=== PATIENT | female | born 1980 | race Hispanic/Latino ===

== ENCOUNTER 2017-02-02 17:04 | Emergency (ER) | payer MEDICAID ==
[2017-02-02] MEDS ORDERED: KETOROLAC TROMETHAMINE 60 MG/2 ML VIAL IM ONE ×2 (17:28→17:29)
[2017-02-02 18:22] LABS: Urine Bilirubin Negative (NEGATIVE); Urine Blood 25 /ul (NEGATIVE); Urine Ketone Negative (NEGATIVE); Urine Protein 15 mg/dL (NEGATIVE); Urine Specific Gravity 1.025 SP.GR. (1.005-1.010); Urine Urobilinogen Normal (NORMAL)
[2017-02-02 18:30] LABS: Urine Amorphous Sediment Moderate - 2+ (NONE-FEW); Urine Appearance Clear; Urine Bacteria 4+; Urine Color Yellow; Urine Mucus Few - 1+; Urine Nitrite Positive (NEGATIVE); Urine RBC 0-5 /hpf (0-5); Urine WBC 0-5 /hpf (0-5)
[2017-02-02] MEDS ORDERED: HYDROmorphone HCL 1 MG/ML DISP.SYRIN IM ONE (18:44)
[2017-02-02] MEDS ORDERED: HYDROmorphone HCL 1 MG/ML DISP.SYRIN ONE (18:46)
--- OUTSIDE RECORDS SUMMARY | 2017-02-02 18:47 | XMS REPORT | Continuity of Care Document ---
:1980 Author Organization [facility] [place] [address] Care Team Providers Name Role Phone Unavailable Primary Care Provider Unavailable Source Comments This disclosure is being made pursuant to the My Dentist program and maynot contain all information available regarding this patient.[facility] Active Allergies and Adverse Reactions Not on File Current Medications Be aware that medications may not be up to date as of this document. Alwaysverify current medications with the patient. Not on file Active Problems Not on file Social History Tobacco Use Types Packs/Day Years Used Date Never Assessed Plan of Care Health Maintenance Due Date Last Done Comments Retired-Pertussis Vaccine Adult 1999 Retired-Tetanus Vaccine Adult 1999 Pap Smear 2001 Retired-INFLUENZA VACCINE 04/27/2015 Results from Last 3 Months Not on file
--- OUTSIDE RECORDS SUMMARY | 2017-02-02 18:47 | XMS REPORT | Continuity of Care Document ---
:1980 Author Organization [facility] ([facility]) Address [address] [place] [address] Phone [phone] Care Team Providers Name Role Phone Provider, No-Primary Care Primary Care Provider Unavailable Source Comments This disclosure is being made pursuant to the Care Everywhere program, applicable federal and state laws, and may not contain all informaitonavailable regarding this patient.[facility] ([facility]) Active Allergies and Adverse Reactions Allergen Noted Date Severity Reactions Comments Hydrocodone-Acetaminophen 12/21/2014 Urticaria (Hives) Current Medications Prescription Sig. Disp. Refills Start Date End Date Status ibuprofen 800 mg Take 1 Tab by mouth 20 Tab 0 12/21/2014 Active tablet every 6 hours as needed for Pain. DO NOT EXCEED 3,200 MG IBUPROFEN PER DAY FROM ALL SOURCES Indications: PAIN oxyCODONE-acetaminoph Take 1 Tab by mouth 15 Tab 0 12/21/2014 Active en 5-325 mg per every 4 hours as tablet needed. DO NOT EXCEED 3,000 MG ACETAMINOPHEN PER DAY FROM ALL SOURCES Indications: PAIN Active Problems Problem Noted Date Impacted teeth with abnormal position 06/24/2015 Social History Tobacco Use Types Packs/Day Years Used Date Current Some Day Smoker 0.25 Smokeless Tobacco: Never Used Tobacco Cessation:Ready to Quit: Yes; Counseling Given: Yes Comments: Last Filed Vital Signs Vital Sign Reading Time Taken Blood Pressure 144/67 12/21/2014 5:01 PM CDT Pulse 96 12/21/2014 5:01 PM CDT Temperature 37 C (98.6 F) 12/21/2014 4:20 PM CDT Respiratory Rate - - Height 1.575 m (5' 2.01") 12/21/2014 4:20 PM CDT Weight 99.791 kg (220 lb) 12/21/2014 4:20 PM CDT Body Mass Index 40.23 12/21/2014 4:20 PM CDT Oxygen Saturation - - Plan of Care Health Maintenance Due Date Last Done Comments Hepatitis B Vaccine (1 of 3 - Primary Series) 1980 Tdap Vaccine 1991 Lipid Disorder Screening 1998 MMR Vaccine 1998 Td Vaccine 1998 Varicella Vaccine (1 of 2 - Adult - No Evidence of 1998 Immunity) Pneumococcal Vaccine (1 of 1 - PPSV23) 1999 Cervical Cancer Screening 2010 Influenza Vaccine: Seasonal (#1) 03/27/2016 Results from Last 3 Months Not on file
--- NOTE | 2017-02-02 19:06 | ERNOTE ---
Medical Problem HPI - Narrative Date of Service: 02/02/17 - General Chief Complaint: Nausea/Vomiting Time Seen by Provider: 02/02/17 18:40 Source: patient Exam Limitations: no limitations - Immun/Allergies/Home Medications Immunizations: IMMUNIZATION HX Immunizations Up to Date Yes History of Influenza Vaccine No Hx Pneumococcal Vaccination No Allergies/Adverse Reactions: Allergies No Known Allergies Allergy (Verified 02/02/17 17:19) Home Medications: HOME MEDICATIONS Albuterol Sulfate [Proair Hfa] 2 puff IH Q4H PRN #1 inhaler 07/10/16 [Last Taken Unknown] Ciprofloxacin HCl [Cipro] 500 mg PO BID #20 tab 02/02/17 [Last Taken Unknown] HYDROcodone/ACETAMINOPHEN [Hydrocodon-Acetaminophen 5-325] 1 each PO TID PRN # 20 tablet 02/02/17 [Last Taken Unknown] metFORMIN HCL [Metformin HCl ER] 500 mg PO DAILY 02/02/17 [Last Taken Unknown] - History of Present History Narrative: There is actual female presents to the emergency room for right sided dental pain and presenting symptoms of a UTI per patient. Patient states that she has had dental pain for several days and naproxen and Tylenol are not helping her. Date (Duration): 02/02/17 Timing: getting worse Severity: moderate Modifying Factors - (Worsens): Present: eating, movement Review of Systems - Narrative Narrative: pain to right upper molars, and pain with voiding. - Review of Systems Constitutional: Present: See HPI, malaise EYE: Present: no symptoms reported ENT: Present: See HPI Respiratory: Present: no symptoms reported Cardiology: Present: no symptoms reported Gastrointestinal/Abdominal: Present: no symptoms reported Genitourinary: Present: See HPI, pain, dysuria, hematuria Skin: Present: no symptoms reported Neurological: Present: no symptoms reported Endocrine: Present: no symptoms reported Hematologic/Lymphatic: Present: no symptoms reported Psych: Present: no symptoms reported All Other Systems: All systems neg except as marked - Patient's Past Medical History Patient History - Medical: Diabetes Type 2, Obesity, UTI'S, Other Patient History - Cardiac/Respiratory: No pertinent hx, Asthma Patient History - Cancer: No Hx of Cancer Patient History - Surgical Procedures: Cholecystectomy, Tubal Ligation Patient History - Other: None LMP (Calendar): 11/29/16 - Social History Living Situations: home Abuse History: No History of abuse Psych History: No pertinent hx Smoking Status: Current every day smoker Have you smoked in the past 12 months: Yes Alcohol Use: occasionally Drug Use: none - Immunizations Immunizations Up to Date: Yes Hx Pneumococcal Vaccination: No History of Influenza Vaccine: No Physical Exam - Physical Exam Narrative: patient is tender along gum line on the right upper area in her mouth. no facial swelling observed. Lower abdominal bladder tenderness on exam as well. General Appearance: Present: wd/wn, alert, moderate distress Eye Exam: Normal inspection: bilateral Ears, Nose, Throat: Present: normal except - Neck: Present: normal inspection, nontender, full range of motion Respiratory: Present: no respiratory distress, normal breath sounds, no accessory muscle use, chest nontender, lungs clear Cardiovascular/Chest: Present: regular rate, rhythm, no murmur, normal peripheral pulses Gastrointestinal/Abdominal: Present: normal bowel sounds, nontender, nondistended, soft, no organomegaly Back Exam: Present: normal inspection, normal range of motion, no CVA tenderness , no vertebral tenderness. Absent: decreased range of motion Extremity Exam: Present: normal inspection, non-tender, normal range of motion, no edema Neurological Exam: Present: alert, oriented, normal mood/affect, no motor/ sensory deficits Skin Exam: Present: normal color, warm/dry Lymphatic Exam: Present: no adenopathy ED Progress - Results and Orders Patient's Lab Results:: I have reviewed the patient's lab results. Results and Orders: positive for a UTI - Vital Signs Vital Signs: Vital Signs 02/02/17 02/02/17 17:13 18:07 Temperature 36.4 C L Pulse Rate 102 H 96 Respiratory 16 18 Rate Blood Pressure 143/93 151/99 O2 Sat by Pulse 98 97 Oximetry - Progress/Reassessment Chief Complaint: Nausea/Vomiting Progress:: Improved Plan - Plan Plan: patient has a UTI and an infected tooth at this time. She was given antibiotics and pain medication along with information about the dental clinic. Patient states she will call them on Sunday to see if they can fix her bad tooth. Departure - Departure Clinical Impression: Pain, dental UTI (urinary tract infection) Qualifiers: Urinary tract infection type: site unspecified Hematuria presence: with hematuria Qualified Code(s): N39.0 - Urinary tract infection, site not specified Disposition: Home Follow Up Needed Condition: Stable Instructions: Urinary Tract Infection, Adult, [id number], Dental Caries, Dental Abscess, [id number] Additional Instructions: Please make sure he make a follow-up appointment with the dentist. Return to the emergency room if pain becomes worse or symptoms return. Follow up with her primary care in the next 2-3 days if needed. Referrals: Nichelle Carl ARNP [Primary Care Provider] - Prescriptions: Ciprofloxacin HCl [Cipro] 500 mg PO BID #20 tab HYDROcodone/ACETAMINOPHEN [Hydrocodon-Acetaminophen 5-325] 1 each PO TID PRN # 20 tablet PRN Reason: Pain
[2017-02-02 20:33] VITALS: BP 131/84
== END 2017-02-02 19:52 | disposition home or self-care (01) ==
LOC: ER 17:04
DX: K08.89 Other specified disorders of teeth and supporting structures (principal); N39.0 Urinary tract infection, site not specified; Z87.440 Personal history of urinary (tract) infections; J45.909 Unspecified asthma, uncomplicated; E11.9 Type 2 diabetes mellitus without complications; F17.200 Nicotine dependence, unspecified, uncomplicated

== ENCOUNTER 2017-03-03 20:38 | Emergency (ER) | payer MEDICAID ==
[2017-03-03] MEDS ORDERED: ONDANSETRON 4 MG TAB.RAPDIS PO ONE (21:18)
--- NOTE | 2017-03-03 21:18 | ERNOTE ---
Medical Problem HPI - General Chief Complaint: Nausea/Vomiting Time Seen by Provider: 03/03/17 21:12 Source: patient Exam Limitations: no limitations - Immun/Allergies/Home Medications Immunizations: IMMUNIZATION HX Immunizations Up to Date Yes History of Influenza Vaccine No Hx Pneumococcal Vaccination No Allergies/Adverse Reactions: Allergies No Known Allergies Allergy (Verified 03/03/17 20:48) Home Medications: HOME MEDICATIONS Albuterol Sulfate [Proair Hfa] 2 puff IH Q4H PRN #1 inhaler 07/10/16 [Last Taken Unknown] metFORMIN HCL [Metformin HCl ER] 500 mg PO DAILY 02/02/17 [Last Taken Unknown] Ondansetron [Zofran Odt] 4 mg PO Q6H PRN #20 tab 03/03/17 [Last Taken Unknown] guaiFENesin [Mucinex] 600 mg PO BID #10 tablet.sa 03/03/17 [Last Taken Unknown] - History of Present History Narrative: Patient presents to the ER for having excessive mucus in her throat and this makes her want to vomit as any fevers chills or vomiting, she is sure she is not and that she is menstruating currently. She just says that she simply does not want to go to work Review of Systems - Review of Systems Constitutional: Present: fatigue EYE: Present: no symptoms reported ENT: Present: no symptoms reported Respiratory: Present: no symptoms reported Gastrointestinal/Abdominal: Present: nausea Genitourinary: Present: no symptoms reported Musculoskeletal: Present: no symptoms reported Skin: Present: no symptoms reported - Patient's Past Medical History Patient History - Medical: Diabetes Type 2, Obesity, UTI'S, Other Patient History - Cardiac/Respiratory: No pertinent hx, Asthma Patient History - Cancer: No Hx of Cancer Patient History - Surgical Procedures: Cholecystectomy, Tubal Ligation Patient History - Other: None LMP (females 10-50): last week LMP (Calendar): 11/29/16 - Social History Living Situations: other Abuse History: No History of abuse Psych History: No pertinent hx Smoking Status: Current every day smoker Have you smoked in the past 12 months: Yes Do you dip or chew tobacco: No Alcohol Use: occasionally Drug Use: none - Immunizations Immunizations Up to Date: Yes Hx Pneumococcal Vaccination: No History of Influenza Vaccine: No Physical Exam - Physical Exam General Appearance: Present: wd/wn, alert, no apparent distress Ears, Nose, Throat: Present: normal ENT inspection, normal pharynx Neck: Present: normal inspection, nontender Respiratory: Present: no respiratory distress, normal breath sounds, no accessory muscle use, chest nontender, lungs clear Cardiovascular/Chest: Present: regular rate, rhythm, no murmur, normal peripheral pulses Gastrointestinal/Abdominal: Present: normal bowel sounds, nontender, nondistended, soft - is obese ED Progress - Vital Signs Patient's Vital Signs:: I have reviewed the patient's vital signs. Vital Signs: Vital Signs 03/03/17 20:43 Temperature 36.2 C L Pulse Rate 92 Respiratory 14 Rate Blood Pressure 121/85 O2 Sat by Pulse 97 Oximetry - Progress/Reassessment Chief Complaint: Nausea/Vomiting Plan - Plan Plan: Patient does not feel well and has fatigue and phlegm in her throat and that causes her to be nauseated. She states she simply does not want to go to work and requests a note for off work I will keep this patient off of work for rest and fluids and Mucinex and Zofran Departure - Departure Clinical Impression: Congestion of throat Disposition: Home self-care Condition: Good Referrals: Nichelle Carl ARNP [Primary Care Provider] - Prescriptions: Ondansetron [Zofran Odt] 4 mg PO Q6H PRN #20 tab PRN Reason: Nausea guaiFENesin [Mucinex] 600 mg PO BID #10 tablet.sa
[2017-03-03] MEDS ORDERED: ONDANSETRON 4 MG TAB.RAPDIS ONE (21:19)
--- OUTSIDE RECORDS SUMMARY | 2017-03-03 21:23 | XMS REPORT | Continuity of Care Document ---
:1980 Author Organization [facility] [place] [address] Care Team Providers Name Role Phone Unavailable Primary Care Provider Unavailable Source Comments This disclosure is being made pursuant to the [employer] program and maynot contain all information available regarding this patient.[facility] Active Allergies and Adverse Reactions Not on [...]
[2017-03-03 21:40] VITALS: BP 132/81
== END 2017-03-03 21:25 | disposition home or self-care (01) ==
LOC: ER 20:38
DX: R11.2 Nausea with vomiting, unspecified (principal); R53.83 Other fatigue; F17.200 Nicotine dependence, unspecified, uncomplicated